=== PATIENT | male | born 1960 | race Caucasian/White ===

== ENCOUNTER 2016-10-16 08:30 | Emergency (ER) | payer BC ==
[~2016-10-16] VITALS: Ht 185.4 cm; Wt 79.6 kg
[2016-10-16 08:34] VITALS: TEMP 36.8; Ht 185.4 cm; Wt 79.6 kg
[2016-10-16] MEDS ORDERED: ASPI81TA28 PO (08:52)
[2016-10-16] MEDS ORDERED: EZET10TA63 PO (08:52)
[2016-10-16] MEDS ORDERED: CHOL1CAP63 PO (08:52)
[2016-10-16] MEDS ORDERED: PRAV40TA PO (08:52)
[2016-10-16 08:56] LABS: BASO ABS # 0.05 K/uL (0-0.2); COMPLETE YES; EOS % 2.4 %; HEMATOCRIT 49.3 % (42-52); IG% 0.2 %; LYMPH % 24.6 %; LYMPH ABS # 1.25 K/uL (1.2-3.4); MEAN CELL VOLUME 90.6 fL (80-100); MEAN CORPUSCULAR HEMOGLOBIN 30.9 pg (25-34); MEAN CORPUSCULAR HGB CONC 34.1 g/dl (32-36); MEAN PLATELET VOLUME 9.1 fL (7.4-10.4); MONO % 8.6 %; NEUT % 63.2 %; PLATELET COUNT 254 K/uL (130-400); RED BLOOD COUNT 5.44 M/uL (4.7-6.1); WHITE BLOOD COUNT 5.09 K/uL (4.8-10.8)
[2016-10-16 09:10] LABS: PROTHROMBIN TIME (PATIENT) 10.7 SECONDS (9.0-12.0)
--- NOTE | 2016-10-16 09:13 | DIAGNOSTIC IMAGING REPORT ---
CHEST ONE VIEW PORTABLE HISTORY: Evaluate Fever/Sepsis COMPARISON: None. FINDINGS: The lungs are clear. Cardiac silhouette is normal in size. No pleural effusions. No pneumothorax. IMPRESSION: No acute process. Electronically signed by: Clemente Shirley M.D. 10/16/2016 9:12 AM Dictated Date/Time: 10/16/2016 9:11 AM
[2016-10-16 09:20] VITALS: O2SAT 96
[2016-10-16 09:21] LABS: ALT/SGPT 80 U/L (12-78); AST/SGOT 52 U/L (15-37); BLOOD UREA NITROGEN 14 mg/dl (7-18); BUN/CREATININE RATIO 14.7 (10-20); CALCIUM 8.9 mg/dl (8.5-10.1); CARBON DIOXIDE 27 mmol/L (21-32); CHLORIDE 110 mmol/L (98-107); CREATININE 0.94 mg/dl (0.60-1.40); GLUCOSE 107 mg/dl (70-99); SODIUM 142 mmol/L (136-145)
[2016-10-16 09:35] LABS: ALKALINE PHOSPHATASE 35 U/L (45-117); CKMB/CK RATIO 0.9 (0-3.0)
--- NOTE | 2016-10-16 10:50 | EMERGENCY ROOM VISIT NOTE ---
History Report prepared by Missy: Heidi Snyder Under the Supervision of: Dr. Harrison Nieto D.O. First contact with patient: 08:37 Chief Complaint: RAPID HEART RATE Stated Complaint: RAPID HEARTBEAT,TIRED WHEN WOKE UP Nursing Triage Summary: triage ntoe; pt reports "i noticed my heart was beating fast when i woke up today, i am feeling tired." pt reports left chest feels "sore." History of Present Illness The patient is a 56 year old male who presents to the Emergency Room with complaints of constant heart racing beginning this morning. The patient states that he noticed that his heart was racing when he woke up this morning He notes that he has felt sluggish all week. 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 The patient complains of chest soreness on the left side and tiredness. He denies any arm pain, neck pain. He notes that he is in [place] for work and is traveling here from [place]. He reports that the last time he ate was last night. The patient notes that he last had his cholesterol checked in May and everything was fine. Source of History: patient Onset: this morning Position: other (global) Quality: other (heart racing) Timing: constant Associated Symptoms: + chest pain (soreness), No neck pain Note: The patient complains of tiredness. He denies any neck pain. Review of Systems See HPI for pertinent positives & negatives. A total of 10 systems reviewed and were otherwise negative. Past Medical & Surgical Medical Problems: (1) High cholesterol Family History No pertinent family history stated. Social History Smoking Status: Never Smoker Occupation Status: employed Current/Historical Medications Scheduled Aspirin (Aspirin Ec), 81 MG PO DAILY Choline Fenofibrate (Fenofibric Acid Dr), 135 MG PO HS Ezetimibe (Zetia), 10 MG PO DAILY Pravastatin Sodium (Pravachol), 1 TAB PO DAILY Allergies Coded Allergies: No Known Allergies (Unverified , 10/16/16) Physical Exam Vital Signs Date Time Temp Pulse Resp B/P Pulse Ox O2 Delivery O2 Flow Rate FiO2 10/16/16 09:50 60 16 126/93 95 Room Air 10/16/16 09:20 96 Room Air 10/16/16 09:19 56 16 124/76 95 Room Air 10/16/16 09:10 72 10/16/16 08:34 36.8 97 18 135/89 96 Room Air Physical Exam CONSTITUTIONAL/VITAL SIGNS: Reviewed / noted above. GENERAL: Non-toxic in appearance. INTEGUMENTARY: Warm, dry, and [place]. HEAD: Normocephalic. EYES: without scleral icterus or trauma. ENT/OROPHARYNX: clear and moist. LYMPHADENOPATHY/NECK: Is supple without lymphadenopathy or meningismus. RESPIRATORY: Lungs clear and equal. CARDIOVASCULAR: Regular rate and rhythm. GI/ABDOMEN: Soft and nontender. No organomegaly or pulsatile mass. No rebound or guarding. Normal bowel sounds. EXTREMITIES: Warm and well perfused. BACK: No CVA tenderness. NEUROLOGICAL: Intact without focal deficits. PSYCHIATRIC: normal affect. MUSCULOSKELETAL: Normally developed with good muscle tone. Medical Decision & Procedures ER Provider Diagnostic Interpretation: X ray results and stated below per my interpretation and radiology interpretation. CHEST ONE VIEW PORTABLE FINDINGS: The lungs are clear. Cardiac silhouette is normal in size. No pleural effusions. No pneumothorax. IMPRESSION: No acute process. Electronically signed by: Clemente Shirley M.D. 10/16/2016 9:12 AM Dictated Date/Time: 10/16/2016 9:11 AM Laboratory Results 10/16/16 08:45 Red Blood Count 5.44, Mean Corpuscular Volume 90.6, Mean Corpuscular Hemoglobin 30.9, Mean Corpuscular Hemoglobin Concent 34.1, Mean Platelet Volume 9.1, Neutrophils (%) (Auto) 63.2, Lymphocytes (%) (Auto) 24.6, Monocytes (%) (Auto) 8.6, Eosinophils (%) (Auto) 2.4, Basophils (%) (Auto) 1.0, Neutrophils # (Auto) 3.22, Lymphocytes # (Auto) 1.25, Monocytes # (Auto) 0.44, Eosinophils # (Auto) 0.12, Basophils # (Auto) 0.05 10/16/16 08:45 Test 10/16/16 08:45 White Blood Count 5.09 K/uL (4.8-10.8) Red Blood Count 5.44 M/uL (4.7-6.1) Hemoglobin 16.8 g/dL (14.0-18.0) Hematocrit 49.3 % (42-52) Mean Corpuscular Volume 90.6 fL (80-100) Mean Corpuscular Hemoglobin 30.9 pg (25-34) Mean Corpuscular Hemoglobin Concent 34.1 g/dl (32-36) Platelet Count 254 K/uL (130-400) Mean Platelet Volume 9.1 fL (7.4-10.4) Neutrophils (%) (Auto) 63.2 % Lymphocytes (%) (Auto) 24.6 % Monocytes (%) (Auto) 8.6 % Eosinophils (%) (Auto) 2.4 % Basophils (%) (Auto) 1.0 % Neutrophils # (Auto) 3.22 K/uL (1.4-6.5) Lymphocytes # (Auto) 1.25 K/uL (1.2-3.4) Monocytes # (Auto) 0.44 K/uL (0.11-0.59) Eosinophils # (Auto) 0.12 K/uL (0-0.5) Basophils # (Auto) 0.05 K/uL (0-0.2) RDW Standard Deviation 42.4 fL (36.4-46.3) RDW Coefficient of Variation 12.9 % (11.5-14.5) Immature Granulocyte % (Auto) 0.2 % Immature Granulocyte # (Auto) 0.01 K/uL (0.00-0.02) Prothrombin Time 10.7 SECONDS (9.0-12.0) Prothromb Time International Ratio 1.0 (0.9-1.1) Activated Partial Thromboplast Time 25.4 SECONDS (21.0-31.0) Partial Thromboplastin Ratio 1.0 Anion Gap 5.0 mmol/L (3-11) Est Creatinine Clear Calc Drug Dose 96.4 ml/min Estimated GFR () 103.2 Estimated GFR (Non- 89.0 BUN/Creatinine Ratio 14.7 (10-20) Calcium Level 8.9 mg/dl (8.5-10.1) Total Bilirubin 1.0 mg/dl (0.2-1) Direct Bilirubin 0.3 mg/dl (0-0.2) Aspartate Amino Transf (AST/SGOT) 52 U/L (15-37) Alanine Aminotransferase (ALT/SGPT) 80 U/L (12-78) Alkaline Phosphatase 35 U/L (45-117) Total Creatine Kinase 172 U/L (39-308) Creatine Kinase MB 1.6 ng/ml (0.5-3.6) Creatine Kinase MB Ratio 0.9 (0-3.0) Troponin I < 0.015 ng/ml (0-0.045) Total Protein 6.9 gm/dl (6.4-8.2) Albumin 4.3 gm/dl (3.4-5.0) Thyroid Stimulating Hormone (TSH) 1.480 uIu/ml (0.300-4.500) Laboratory results as stated above per my review. ECG Indication: other (heart racing) Rate (beats per minute): 75 Rhythm: normal sinus Findings: no ectopy, other (no acute injury) ED Course 0842: Previous medical records were reviewed. The patient was evaluated in room B3B. A complete history and physical examination was performed. 1035: I reevaluated the patient and she is resting comfortably. 1056: On reevaluation, the patient is doing well. I discussed the results and findings with the patient. She verbalized agreement of the treatment plan. The patient was discharged home. Medical Decision the differential was considered includes acute myocardial infarction, acute coronary syndrome, myocarditis, pericarditis, pericardial effusions /tamponade, esophageal perforation, thoracic aortic dissection, pulmonary embolism, pneumonia, pneumothorax, pancreatitis, shingles, acute cholecystitis, perforated abdominal viscus. This is a 56-year-old male who presents to the ED with a chief complaint of feeling a little sluggish this past week. He states that his heart felt like it was racing a little this morning. The patient denies any fevers or recent illness. No shortness of breath. He states that he has had routine outpatient blood work including cholesterol in May that was normal. The patient's vital signs here are stable. His physical exam was normal. EKG shows normal sinus rhythm. CBC, complete metabolic panel are unremarkable. The AST and ALTs are slightly elevated. Troponin was negative. TSH is normal. The patient was told the results of the test. He is felt to be stable for discharge and outpatient follow-up. Impression Primary Impression: Weakness Additional Impression: Palpitations Scribe Attestation The scribe's documentation has been prepared under my direction and personally reviewed by me in its entirety. I confirm that the note above accurately reflects all work, treatment, procedures, and medical decision making performed by me. Departure Information Dispostion Home / Self-Care Referrals No Doctor, Assigned (PCP) Patient Instructions [facility] Additional Instructions Follow-up with your doctor for further care and evaluation in 1-2 days. Return to the emergency department for worsening or new symptoms or any concerns. You have been examined and treated today on an emergency basis only. This is not a substitute for, or an effort to provide, complete comprehensive medical care. It is impossible to recognize and treat all injuries or illnesses in a single emergency department visit. It is therefore important that you follow up closely with your doctor. Call as soon as possible for an appointment. Problem Qualifiers
[2016-10-16 10:58] VITALS: BP 139/99; PULSE 72; O2SAT 94
== END 2016-10-16 10:59 | disposition home or self-care (01) ==
LOC: C.EDB 08:33
DX: R53.1 Weakness (principal); R00.2 Palpitations; E78.00 Pure hypercholesterolemia, unspecified; Z79.82 Long term (current) use of aspirin; Z79.899 Other long term (current) drug therapy